=== PATIENT | male | born 1980 ===

== ENCOUNTER 2025-03-09 23:02 | Emergency (ER) | payer OTHER, BC ==
[2025-03-09] MEDS: Ketorolac 30 MG/ML SDV IM ONE (23:50)
== END 2025-03-10 00:55 | disposition home or self-care (01) ==
LOC: JD.ED 23:02
DX: S99.912A Unspecified injury of left ankle, initial encounter (principal); F17.200 Nicotine dependence, unspecified, uncomplicated; Z79.899 Other long term (current) drug therapy; X50.9XXA Other and unspecified overexertion or strenuous movements or postures, initial encounter; Y93.01 Activity, walking, marching and hiking
CPT/HCPCS: 73590; 96372; 99283; J1885